=== PATIENT | female | born 1995 | race Caucasian/White ===

== ENCOUNTER 2021-04-06 22:20 | Emergency (ER) | payer OTHER ==
[~2021-04-06 22:20] MED LIST: ETODOLAC500 MG PO
[2021-04-06 23:12] LABS: BASOPHIL 0.6 % (0-2); EOSINOPHIL 1.8 % (0-5); HCT 41.5 % (37.0-47.0); HGB 13.1 g/dl (12.5-16.0); LYMPHOCYTE 30.6 % (15-48); MCH 26.7 pg (25.0-31.0); MCHC 31.6 g/dL (32.0-36.0); MCV 84.5 fL (78.0-100.0); MONOCYTE 8.8 % (0-12); MPV 11.7 fL (6.0-9.5); NEUTROPHIL 57.8 % (41-80); NRBC 0; PLT 241 K/uL (150-400); RBC 4.91 M/uL (4.20-5.40); WBC 8.4 K/uL (4.0-10.5)
[2021-04-06 23:24] LABS: BILIRUBIN NEGATIVE (NEGATIVE); BLOOD NEGATIVE Ery/uL (NEGATIVE); CLARITY CLEAR (CLEAR); COLOR YELLOW (YELLOW); GLUCOSE (U) NORMAL (NORMAL); LEUKOCYTES NEGATIVE Leu/uL (NEGATIVE); NITRITE NEGATIVE (NEGATIVE); PROTEIN NEGATIVE (NEGATIVE); SPECIFIC GRAVITY 1.025 (1.001-1.030)
[2021-04-06 23:40] LABS: BILIRUBIN - TOTAL 0.3 mg/dL (0.2-1.0); BUN/CREAT RATIO (CALC) 17.7 RATIO; CREATININE 0.62 mg/dL (0.51-0.95); GLOBULIN (CALCULATION) 3.6 g/dL; POTASSIUM 4.1 mmol/L (3.5-5.1); TOTAL PROTEIN 7.6 g/dL (6.4-8.2)
[2021-04-07] MEDS ORDERED: NORCO 5-325 TA1 EACH PO (00:57)
[2021-04-07] MEDS ORDERED: BENTYL10 MG PO (00:57)
[2021-04-07] MEDS ORDERED: ONDANSETRON ODT4 MG SL (00:57)
== END 2021-04-07 01:15 | disposition home or self-care (01) ==
LOC: FER 22:20
PROVIDERS: Emergency Medicine Emergency Medical Services
DX: R10.32 Left lower quadrant pain (principal); R10.31 Right lower quadrant pain; J45.909 Unspecified asthma, uncomplicated; F17.290 Nicotine dependence, other tobacco product, uncomplicated
CPT/HCPCS: 36415; 74022; 80053; 81003; 83605; 83690; 85025; J1885; J2270; J2405; J7120